=== PATIENT | female | born 1985 | race African-American/Black ===

== ENCOUNTER 2016-03-31 22:37 | Emergency (ER) | payer SELFPAY ==
[~2016-03-31] VITALS: Ht 167.6 cm; Wt 75.0 kg
[2016-03-31 22:40] VITALS: BP 122/64; PULSE 73; RESP 18; TEMP 98.2; O2SAT 98
[2016-03-31] MEDS ORDERED: ONDANSETRON HCL 4 MG/2 ML VIAL IV ONE (23:00)
[2016-03-31] MEDS ORDERED: SODIUM CHLOR 0.9% 1000 ML INJ 1,000 ML IV ONE (23:00)
[2016-03-31] MEDS ORDERED: ZOFR4TAB3 SL (23:08)
--- NOTE | 2016-03-31 23:08 | PD ---
HPI Chief Complaint: GI Complaint Time Seen by Provider: 22:52 Travel History International Travel<30 days: No Contact w/Intl Traveler<30days: No Traveled to known affect area: No History of Present Illness HPI The patient is 31 year old female who presents to the [facility] emergency department with a history of abrupt onset of nausea, vomiting, and diarrhea that began at approximate 4 PM today. She denies any unusual food intake. She denies any antibiotic use in the last 3 months. She denies any foreign travel in the last 6 months. The patient denies having any known sick contacts. The patient reports that she's had nausea and vomiting 3, diarrhea 4 since onset. She reports the stool is liquid and brown in color. She denies having any blood in the stool or mucus in the stool. The patient denies any recent fevers , cough, congestion, neck pain, chest pain, shortness of breath, abdominal pain , urinary symptoms, or neurologic symptoms. LMP: March 10, 2016 [facility] Past Medical History Narrative Medical The patient's past medical history is significant for hypothyroid disorder, hypertension, history of being prediabetic. The patient denies having a primary care physician currently. She reports that she last had her thyroid hormone checked 2 years ago. She reports that at that time it was within normal range. Diabetes: Yes (pre) Patient Takes Glucophage: No Hypertension: Yes Tetanus Vaccination: Unknown Influenza Vaccination: No ?: Not Past Surgical History Narrative Surgical The patient's past surgical history is significant for a cyst removal from her chest, history of . Section: Yes Other Surgery: Yes Social History Alcohol Use: No Tobacco Use: No Substance Use: No Allergies-Medications (Allergen,Severity, Reaction): Coded Allergies: No Known Allergies (Unverified , 03/31/16) Reported Meds & Prescriptions Reported Meds & Active Scripts Active Zofran Odt (Ondansetron Odt) 4 Mg Tab 4 Mg SL Q6HR PRN Review of Systems Except as stated in HPI: all other systems reviewed are Neg General / Constitutional: No: Fever Eyes: No: Visual changes HENT: No: Headaches Cardiovascular: No: Chest Pain or Discomfort Respiratory: No: Shortness of Breath Gastrointestinal: Positive: Nausea, Vomiting, Diarrhea, Changes in Bowel Habits , No: Abdominal Pain, Indigestion, Loss of Appetite Genitourinary: No: Dysuria Musculoskeletal: No: Pain Skin: No Rash Neurologic: No: Weakness Psychiatric: No: Depression Endocrine: No: Polydipsia Hematologic/Lymphatic: No: Easy Bruising Physical Exam Narrative General: The patient is a well-developed well-nourished female in no acute distress. Head and Neck exam: Head is normocephalic atraumatic. Eyes: Pupils are equal round and reactive to light. Nose: Midline septum with pink mucous membranes Mouth: Dentition unremarkable. Moist mucus membranes. Posterior oropharynx is not erythematous. No tonsillar hypertrophy. Uvula midline. Airway patent. Neck: No palpable lymphadenopathy. No nuchal rigidity. No thyromegaly. Cardiovascular: Regular rate and rhythm without murmurs, gallops, or rubs. Lungs: Clear to auscultation bilaterally. No wheezes, rhonchi, or rales. Abdomen: Soft, without tenderness to palpation in all 4 quadrants of the abdomen. No guarding, rebound, or rigidity. Normal bowel sounds are audible. No tenderness on palpation of McBurney's point. Negative Anderson's sign. Extremities: No clubbing, cyanosis, or edema. 2+ pulses in all 4 extremities. No calf tenderness on palpation. Back: No spinous process tenderness to palpation. No costovertebral angle tenderness to palpation. Neurologic Exam: Grossly nonfocal. Skin Exam: No rash noted. Intact skin that is warm and dry. Data Data Last Documented VS Vital Signs Date Time Temp Pulse Resp B/P Pulse Ox O2 Delivery O2 Flow Rate FiO2 03/31/16 23:13 18 03/31/16 22:40 98.2 73 122/64 98 Orders Complete Blood Count With Diff (03/31/16 22:58) Comprehensive Metabolic Panel (03/31/16 22:58) Thyroid Stimulating Hormone (03/31/16 22:58) Iv Access Insert/Monitor (03/31/16 22:58) Ecg Monitoring (03/31/16 22:58) Oximetry (03/31/16 22:58) Ed Urine Pregnancytest Poc (03/31/16 22:58) Sodium Chlor 0.9% 1000 Ml Inj (Ns 1000 M (03/31/16 23:00) Ondansetron Inj (Zofran Inj) (03/31/16 23:00) C-Reactive Protein (Crp) (03/31/16 22:58) Sodium Chlor 0.9% 1000 Ml Inj (Ns 1000 M (04/01/16 01:00) Oral Rehydration (04/01/16 00:52) Labs Laboratory Tests Test 03/31/16 23:12 Sodium Level 141 MEQ/L Potassium Level 3.2 MEQ/L Chloride Level 108 MEQ/L Carbon Dioxide Level 24.3 MEQ/L Anion Gap 9 MEQ/L Blood Urea Nitrogen 15 MG/DL Creatinine 1.07 MG/DL Estimat Glomerular Filtration 72 ML/MIN Rate Random Glucose 132 MG/DL Calcium Level 8.5 MG/DL Total Bilirubin 0.6 MG/DL Aspartate Amino Transf 22 U/L (AST/SGOT) Alanine Aminotransferase 22 U/L (ALT/SGPT) Alkaline Phosphatase 79 U/L C-Reactive Protein LESS THAN 0.29 MG/DL Total Protein 7.3 GM/DL Albumin 3.4 GM/DL Thyroid Stimulating Hormone 2.890 uIU/ML 3rd Gen White Blood Count 13.2 TH/MM3 Red Blood Count 4.73 MIL/MM3 Hemoglobin 11.4 GM/DL Hematocrit 34.9 % Mean Corpuscular Volume 73.8 FL Mean Corpuscular Hemoglobin 24.0 PG Mean Corpuscular Hemoglobin 32.5 % Concent Red Cell Distribution Width 18.2 % Platelet Count 171 TH/MM3 Mean Platelet Volume 9.6 FL Neutrophils (%) (Auto) 90.9 % Lymphocytes (%) (Auto) 3.8 % Monocytes (%) (Auto) 4.9 % Eosinophils (%) (Auto) 0.2 % Basophils (%) (Auto) 0.2 % Neutrophils # (Auto) 12.0 TH/MM3 Lymphocytes # (Auto) 0.5 TH/MM3 Monocytes # (Auto) 0.6 TH/MM3 Eosinophils # (Auto) 0.0 TH/MM3 Basophils # (Auto) 0.0 TH/MM3 CBC Comment AUTO DIFF Differential Total Cells 100 Counted Neutrophils % (Manual) 87 % Band Neutrophils % 6 % Lymphocytes % 2 % Monocytes % 3 % Eosinophils % 1 % Basophils % 1 % Neutrophils # (Manual) 12.3 TH/MM3 Differential Comment FINAL DIFF MANUAL Platelet Estimate NORMAL Platelet Morphology Comment NORMAL Acanthocytes OCC MDM Medical Decision Making Medical Screen Exam Complete: Yes Emergency Medical Condition: Yes Differential Diagnosis Viral versus bacterial Gastroenteritis, versus viral syndrome, versus electrolyte abnormality, versus Narrative Course During the course of the patients emergency department visit, the patients history, examination, and differential diagnosis were reviewed with the patient. The patient had IV access obtained and blood work sent for analysis. The patient was placed on a cardiac care nurse with oximetry and blood pressure monitoring. The patient was provided normal saline 1 L IV fluid bolus, Zofran 4 mg IV 1 for nausea. The patients laboratory studies were reviewed and remarkable for white count 13.2, hemoglobin 11.4, platelets 171 with 90.9 neutrophils, CMP is remarkable for potassium of 3.2 which was supplemented orally, chloride 108, creatinine 1.07, glucose 132, C-reactive protein less than 0.29, TSH within normal limits at 2.89. The patient was able to tolerate oral rehydration therapy. The patient was instructed regarding the importance of staying well-hydrated with oral rehydration solution such as Pedialyte. The patient will be discharged home with a prescription for Zofran. The patient's symptoms are likely related to a viral gastroenteritis. The patient is resting comfortably and feels better, is alert and in no distress. The patients results and examination findings were discussed with the patient. The repeat examination is unremarkable and benign. The history, exam, diagnostic testing, and current condition do not suggest any significant pathology to warrant further testing, continued ED treatment, admission, or surgical evaluation at this point. The vital signs have been stable. The patient does not have uncontrollable pain, intractable vomiting, or other significant symptoms. The patient's condition is stable and appropriate for discharge. The patient will pursue further outpatient evaluation with a primary care physician or other designated or consulting physician as indicated in the discharge instructions. The patient expressed understanding and was agreeable with this plan. Diagnosis Primary Impression: Nausea vomiting and diarrhea Patient Instructions: Acute Diarrhea (ED), Acute Nausea and Vomiting (ED), General Instructions Med/Other Pt SpecificInfo: Prescription(s) given Scripts Ondansetron Odt (Zofran Odt)4 Mg Tab4 Mg SL Q6HR PRN (Nausea/Vomiting) #7 TAB Ref 0 Prov:Jannet Díaz MD 03/31/16 Disposition: 01 DISCHARGE HOME Condition: Stable Jannet Díaz MD Mar 31, 2016 23:08
[2016-03-31 23:13] VITALS: RESP 18
[2016-03-31 23:18] LABS: BASOPHIL % 0.2 % (0.0-2.0); EOSINOPHIL % 0.2 % (0.0-4.0); HEMATOCRIT 34.9 % (35.0-46.0); LYMPH % 3.8 % (9.0-44.0); LYMPHOCYTE # 0.5 TH/MM3 (1.0-4.8); MEAN CELL VOLUME 73.8 FL (80.0-100.0); MEAN CORPUSCULAR HGB CONC 32.5 % (32.0-36.0); MONO % 4.9 % (0.0-8.0); NEUT % 90.9 % (16.0-70.0); PLATELET COUNT 171 TH/MM3 (150-450); RED BLOOD COUNT 4.73 MIL/MM3 (4.00-5.30); RED CELL DISTRIBUTION WIDTH 18.2 % (11.6-17.2); WHITE BLOOD COUNT 13.2 TH/MM3 (4.0-11.0)
[2016-03-31 23:19] LABS: HEMO FLAGS AUTO DIFF
[2016-03-31 23:35] LABS: ALT (GPT) 22 U/L (10-53); ANION GAP 9 MEQ/L (5-15); AST (GOT) 22 U/L (15-37); BICARBONATE 24.3 MEQ/L (21.0-32.0); BLOOD UREA NITROGEN 15 MG/DL (7-18); CHLORIDE 108 MEQ/L (98-107); GLOMERULAR FILTRATION RATE 72 ML/MIN (>89); POTASSIUM 3.2 MEQ/L (3.5-5.1); SODIUM (NA) 141 MEQ/L (136-145)
[2016-03-31 23:44] LABS: ALKALINE PHOSPHATASE 79 U/L (45-117); TOTAL BILIRUBIN ADULT 0.6 MG/DL (0.2-1.0)
[2016-03-31 23:46] LABS: BANDS 6 % (0-6); BASOPHILS 1 % (0-2); EOSINOPHILS 1 % (0-4); NEUTROPHIL # MANUAL DIFF 12.3 TH/MM3 (1.8-7.7); POLYS (SEG NEUTROPHILS) 87 % (16-70); WBC DIFF SAMPLE 100
[2016-03-31 23:47] LABS: PLATELET ESTIMATE SMEAR NORMAL (NORMAL); PLATELET MORPHOLOGY NORMAL (NORMAL); SCAN/DIFF FINAL DIFF MANUAL
[2016-03-31 23:48] LABS: ACANTHOCYTES OCC (NORMAL)
[2016-04-01] MEDS ORDERED: SODIUM CHLOR 0.9% 1000 ML INJ 1,000 ML IV ONE (01:00)
[2016-04-01] MEDS ORDERED: POTASSIUM CHLORIDE 20 MEQ CONTROLLED RELEASE TAB PO ONE (01:30)
== END 2016-04-01 02:21 | disposition home or self-care (01) ==
LOC: NEPE 22:37
DX: R11.2 Nausea with vomiting, unspecified (principal); R19.7 Diarrhea, unspecified; I10 Essential (primary) hypertension; E03.9 Hypothyroidism, unspecified; E11.9 Type 2 diabetes mellitus without complications
CPT/HCPCS: 80053; 84443; 84703; 85007; 85027; 86140; 96361; 96374; 99284; J2405; J7030

== ENCOUNTER 2016-09-02 08:10 | Emergency (ER) | payer OTHER ==
[~2016-09-02] VITALS: Ht 185.4 cm; Wt 82.0 kg
[~2016-09-02 08:10] MED LIST: ZOFR4TAB3 SL
[2016-09-02] MEDS ORDERED: AMLO5 PO (08:15)
[2016-09-02] MEDS ORDERED: LISI-515 PO (08:15)
[2016-09-02] MEDS ORDERED: SODIUM CHLORIDE 0.9% FLUSH 10 ML FLUSH IVF PRN (08:15)
--- NOTE | 2016-09-02 08:16 | PD ---
HPI Chief Complaint: Syncope/Near-Syncope Time Seen by Provider: 08:14 Travel History International Travel<30 days: No Contact w/Intl Traveler<30days: No History of Present Illness HPI 31-year-old female with history of HTN here with complaint of syncope. Patient was at work this morning. She began to feel lightheaded, nauseous, presyncopal and then had a brief syncopal episode. 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 Admits that she had not yet had anything to eat or drink at this morning. She feels back to baseline at this time. She denies having any chest pain, shortness of breath, palpitations. No personal or familial history of prolonged QT syndrome, WPW, Brugada. Patient does have a history of HTN, but is no longer on her antihypertensives. Noting lack of financial means and health insurance to follow up with PCP. PFSH Past Medical History Diabetes: Yes (prediabetic, no longer after losing weight) Hypertension: Yes Past Surgical History Section: Yes Other Surgery: Yes Social History Alcohol Use: No Tobacco Use: No Substance Use: No Allergies-Medications (Allergen,Severity, Reaction): Coded Allergies: No Known Allergies (Unverified , 09/02/16) Reported Meds & Prescriptions Reported Meds & Active Scripts Active Lisinopril 20 Mg Tab 20 Mg PO DAILY Norvasc (Amlodipine Besylate) 5 Mg Tab 5 Mg PO DAILY Zofran Odt (Ondansetron Odt) 4 Mg Tab 4 Mg SL Q6HR PRN Review of Systems Except as stated in HPI: all other systems reviewed are Neg Physical Exam Narrative GENERAL: Well-appearing female in no acute distress SKIN: Focused skin assessment warm/dry. HEAD: Normocephalic. EYES: No scleral icterus. No injection or drainage. ENT: Mucous membranes pink and moist. NECK: Supple CARDIOVASCULAR: Regular rate and rhythm. No murmur appreciated. RESPIRATORY: No accessory muscle use. Clear to auscultation. Breath sounds equal bilaterally. GASTROINTESTINAL: Abdomen soft, non-tender, nondistended. MUSCULOSKELETAL: No obvious deformities. No edema. NEUROLOGICAL: Awake and alert. Normal speech. PSYCHIATRIC: Appropriate mood and affect; insight and judgment normal. Data Data Last Documented VS Vital Signs Date Time Temp Pulse Resp B/P Pulse Ox O2 Delivery O2 Flow Rate FiO2 09/02/16 08:34 100 Room Air 09/02/16 08:29 97.5 72 15 150/99 Orders Electrocardiogram (09/02/16 08:14) Basic Metabolic Panel (Bmp) (09/02/16 08:14) Complete Blood Count With Diff (09/02/16 08:14) Magnesium (Mg) (09/02/16 08:14) Ecg Monitoring (09/02/16 08:14) Iv Access Insert/Monitor (09/02/16 08:14) Oximetry (09/02/16 08:14) Sodium Chloride 0.9% Flush (Ns Flush) (09/02/16 08:15) Potassium Chloride (Kcl) (09/02/16 09:00) Labs Laboratory Tests Test 09/02/16 08:28 White Blood Count 5.2 TH/MM3 Red Blood Count 4.62 MIL/MM3 Hemoglobin 10.5 GM/DL Hematocrit 33.6 % Mean Corpuscular Volume 72.7 FL Mean Corpuscular Hemoglobin 22.8 PG Mean Corpuscular Hemoglobin 31.4 % Concent Red Cell Distribution Width 18.1 % Platelet Count 250 TH/MM3 Mean Platelet Volume 9.3 FL Neutrophils (%) (Auto) 44.4 % Lymphocytes (%) (Auto) 46.4 % Monocytes (%) (Auto) 8.0 % Eosinophils (%) (Auto) 0.7 % Basophils (%) (Auto) 0.5 % Neutrophils # (Auto) 2.3 TH/MM3 Lymphocytes # (Auto) 2.5 TH/MM3 Monocytes # (Auto) 0.4 TH/MM3 Eosinophils # (Auto) 0.0 TH/MM3 Basophils # (Auto) 0.0 TH/MM3 CBC Comment AUTO DIFF Differential Comment AUTO DIFF CONFIRMED Platelet Estimate NORMAL Platelet Morphology Comment NORMAL Sodium Level 142 MEQ/L Potassium Level 3.2 MEQ/L Chloride Level 105 MEQ/L Carbon Dioxide Level 29.2 MEQ/L Anion Gap 8 MEQ/L Blood Urea Nitrogen 14 MG/DL Creatinine 1.00 MG/DL Estimat Glomerular Filtration 78 ML/MIN Rate Random Glucose 90 MG/DL Calcium Level 8.8 MG/DL Magnesium Level 2.2 MG/DL [facility] Medical Decision Making Medical Screen Exam Complete: Yes Emergency Medical Condition: Yes Medical Record Reviewed: Yes Differential Diagnosis 31-year-old female with history of HTN here to break syncopal episode. Differential includes vasovagal, dehydration, arrhythmia, symptomatic anemia, electrolyte abnormality. Narrative Course Patient placed on monitor, IV established and blood obtained. Twelve-lead EKG shows sinus rhythm without notable ST or T-wave abnormalities and normal intervals. Patient feels improved and is back to baseline. Able to ambulate without any symptoms. CBC, BMP, magnesium notable for potassium 3.2, replaced with 40mEq orally. Patient reassured and discharged home with prescriptions for antihypertensives. Diagnosis Primary Impression: Vasovagal syncope Additional Impressions: Hypertension Qualified Code: I10 - Essential hypertension Hypokalemia Referrals: [facility] call for appointment Additional Instructions: Antihypertensives as prescribed. Call to establish primary care provider for ongoing management of hypertension. Med/Other Pt SpecificInfo: Prescription(s) given Scripts Lisinopril 20 Mg Tab20 Mg PO DAILY #30 TAB Ref 0 Prov:Zully Mayorga MD 09/02/16 Amlodipine (Norvasc)5 Mg Tab5 Mg PO DAILY #30 TAB Ref 0 Prov:Zully Mayorga MD 09/02/16 Disposition: 01 DISCHARGE HOME Condition: Stable Zully Mayorga MD Sep 02, 2016 08:16
[2016-09-02 08:29] VITALS: BP 150/99; PULSE 72; RESP 15; TEMP 97.5; O2SAT 100
[2016-09-02 08:34] VITALS: O2SAT 100
[2016-09-02 08:36] LABS: AUTOMATED NEUTROPHIL # 2.3 TH/MM3 (1.8-7.7); BASOPHIL % 0.5 % (0.0-2.0); EOSINOPHIL % 0.7 % (0.0-4.0); HEMATOCRIT 33.6 % (35.0-46.0); LYMPH % 46.4 % (9.0-44.0); LYMPHOCYTE # 2.5 TH/MM3 (1.0-4.8); MEAN CELL VOLUME 72.7 FL (80.0-100.0); MEAN CORPUSCULAR HEMOGLOBIN 22.8 PG (27.0-34.0); MEAN CORPUSCULAR HGB CONC 31.4 % (32.0-36.0); NEUT % 44.4 % (16.0-70.0); PLATELET COUNT 250 TH/MM3 (150-450); RED BLOOD COUNT 4.62 MIL/MM3 (4.00-5.30); RED CELL DISTRIBUTION WIDTH 18.1 % (11.6-17.2); WHITE BLOOD COUNT 5.2 TH/MM3 (4.0-11.0)
[2016-09-02 08:37] LABS: HEMO FLAGS AUTO DIFF
[2016-09-02 08:42] LABS: POTASSIUM 3.2 MEQ/L (3.5-5.1)
[2016-09-02 08:44] LABS: BICARBONATE 29.2 MEQ/L (21.0-32.0); MAGNESIUM 2.2 MG/DL (1.5-2.5)
[2016-09-02 08:57] LABS: PLATELET ESTIMATE SMEAR NORMAL (NORMAL); PLATELET MORPHOLOGY NORMAL (NORMAL); SCAN/DIFF AUTO DIFF CONFIRMED
[2016-09-02] MEDS ORDERED: POTASSIUM CHLORIDE 20 MEQ CONTROLLED RELEASE TAB PO ONE (09:00)
--- NOTE | 2016-09-02 13:44 | EKG ---
Date Performed: 09/02/2016 Time Performed: 08:18:38 PTAGE: 31 years EKG: Sinus rhythm Normal ECG based on available leads NO PREVIOUS TRACING DOCTOR: Isaias Rousseau Interpretating Date/Time 09/02/2016 13:41:46
== END 2016-09-02 09:20 | disposition home or self-care (01) ==
LOC: PHED 08:10
DX: R55 Syncope and collapse (principal); I10 Essential (primary) hypertension; E87.6 Hypokalemia
CPT/HCPCS: 80048; 83735; 85025; 93005; 99285

== ENCOUNTER 2016-09-18 23:31 | Emergency (ER) | payer SELFPAY ==
[~2016-09-18] VITALS: Ht 185.4 cm; Wt 87.3 kg
[~2016-09-18 23:31] MED LIST changes: +AMLO5 PO; +LISI-515 PO
[2016-09-18 23:36] VITALS: BP 111/70; PULSE 85; RESP 12; TEMP 98.6; O2SAT 100
[2016-09-19] MEDS ORDERED: SODIUM CHLOR 0.9% 1000 ML INJ 1,000 ML IV SCH (00:23)
[2016-09-19] MEDS ORDERED: SODIUM CHLORIDE 0.9% FLUSH 10 ML FLUSH IV FLUSH PRN (00:30)
[2016-09-19] MEDS ORDERED: EPINEPHrine HCL (1:1000) 1 MG/ML VIAL IM ONE (00:30)
[2016-09-19] MEDS ORDERED: FAMOTIDINE 20 MG/2 ML VIAL IV PUSH ONE (00:30)
[2016-09-19] MEDS ORDERED: predniSONE 20 MG TAB PO ONE (00:30)
[2016-09-19] MEDS ORDERED: methylPREDNISolone SOD SUCC 125 MG/2 ML VIAL IM ONE (00:30)
[2016-09-19] MEDS ORDERED: diphenhydrAMINE HCL 50 MG/ML VIAL IVP ONE (00:30)
[2016-09-19] MEDS ORDERED: ZANT150T2 PO (00:34)
[2016-09-19] MEDS ORDERED: PRED50 PO (00:34)
--- NOTE | 2016-09-19 00:34 | PD ---
HPI Chief Complaint: Allergic/Adverse Reaction Time Seen by Provider: 00:23 Travel History International Travel<30 days: No Contact w/Intl Traveler<30days: No Traveled to known affect area: No History of Present Illness HPI The patient is a 31-year-old female that was just started on lisinopril recently and complains of upper lip swelling since 1 PM today. The patient denies any wheezing, shortness of breath or any other symptoms. She hasn't no other known allergies. She denies any tongue swelling or airway obstruction. She took a 25 mg tablet and 10 cc of Benadryl elixir at around 6 PM today. She states there is no possibility of . She has not taken the lisinopril in over 24 hours. [facility] Past Medical History Diabetes: Yes (prediabetic, no longer after losing weight) Patient Takes Glucophage: No Hypertension: Yes Thyroid Disease: Yes (HYPOTHYROIDISM) Tetanus Vaccination: > 5 Years Influenza Vaccination: No ?: Not LMP: 08/27/16 : 1 Para: 1 Past Surgical History Section: Yes (2007) Other Surgery: Yes (CYST REMOVAL-LOWER STERNUM ) Social History Alcohol Use: No Tobacco Use: No Substance Use: No Allergies-Medications (Allergen,Severity, Reaction): Coded Allergies: No Known Allergies (Unverified , 09/18/16) Reported Meds & Prescriptions Reported Meds & Active Scripts Active Lisinopril 20 Mg Tab 20 Mg PO DAILY Norvasc (Amlodipine Besylate) 5 Mg Tab 5 Mg PO DAILY Review of Systems Except as stated in HPI: all other systems reviewed are Neg Physical Exam Narrative GENERAL: The patient is alert, oriented 3 in minimal apparent distress with her upper lip swelling. She is not in any respiratory distress. Her vital signs are normal. SKIN: Focused skin assessment warm/dry. No skin rash is noted. HEAD: Atraumatic. Normocephalic. EYES: Pupils equal and round. No scleral icterus. No injection or drainage. ENT: No nasal bleeding or discharge. Mucous membranes pink and moist. There is swelling over the left lip but no tongue swelling. There is no airway stridor. NECK: Trachea midline. No JVD. CARDIOVASCULAR: Regular rate and rhythm. No murmur appreciated. RESPIRATORY: No accessory muscle use. Clear to auscultation. Breath sounds equal bilaterally. GASTROINTESTINAL: Abdomen soft, non-tender, nondistended. Hepatic and splenic margins not palpable. MUSCULOSKELETAL: No obvious deformities. No clubbing. No cyanosis. No edema. NEUROLOGICAL: Awake and alert. No obvious cranial nerve deficits. Motor grossly within normal limits. Normal speech. PSYCHIATRIC: Appropriate mood and affect; insight and judgment normal. Data Data Last Documented VS Vital Signs Date Time Temp Pulse Resp B/P Pulse Ox O2 Delivery O2 Flow Rate FiO2 09/18/16 23:50 76 97 Room Air 09/18/16 23:36 98.6 12 111/70 [facility] Medical Decision Making Medical Screen Exam Complete: Yes Emergency Medical Condition: Yes Medical Record Reviewed: Yes Differential Diagnosis Angioedema, allergic reaction, dental abscess, cellulitis Narrative Course The patient appears to have angioedema from lisinopril. She will need to discontinue the lisinopril and follow-up with her primary care physician this week. Her pressure is good despite not taking the lisinopril and 24 hours. Diagnosis Primary Impression: VIVIAN inhibitor-aggravated angioedema Additional Instructions: As we discussed, discontinue the lisinopril and take the Benadryl 25 mg 3 times daily, the Zantac 150 mg twice daily and the prednisone 50 mg daily for 5 days. Med/Other Pt SpecificInfo: Prescription(s) given Scripts Prednisone 50 Mg Tab50 Mg PO DAILY 4 Days Ref 0 Prov:Arash Torres MD 09/19/16 Ranitidine (Zantac)150 Mg Pte593 Mg PO BID #60 TAB Ref 0 Prov:Arash Torres MD 09/19/16 Disposition: 01 DISCHARGE HOME Condition: Stable Arash Torres MD Sep 19, 2016 00:34
[2016-09-19 00:49] VITALS: PULSE 77; O2SAT 100
[2016-09-19 00:54] LABS: AUTOMATED NEUTROPHIL # 3.5 TH/MM3 (1.8-7.7); BASOPHIL % 0.3 % (0.0-2.0); EOSINOPHIL # 0.1 TH/MM3 (0-0.4); EOSINOPHIL % 0.8 % (0.0-4.0); HEMATOCRIT 31.4 % (35.0-46.0); LYMPH % 40.2 % (9.0-44.0); MEAN CELL VOLUME 73.2 FL (80.0-100.0); MEAN CORPUSCULAR HEMOGLOBIN 23.4 PG (27.0-34.0); MEAN CORPUSCULAR HGB CONC 31.9 % (32.0-36.0); MONO % 11.2 % (0.0-8.0); NEUT % 47.5 % (16.0-70.0); PLATELET COUNT 184 TH/MM3 (150-450); RED CELL DISTRIBUTION WIDTH 18.1 % (11.6-17.2); WHITE BLOOD COUNT 7.4 TH/MM3 (4.0-11.0)
[2016-09-19 00:58] LABS: HEMO FLAGS DIFF FINAL
[2016-09-19 01:06] LABS: POTASSIUM 3.3 MEQ/L (3.5-5.1)
[2016-09-19 01:10] LABS: BICARBONATE 27.9 MEQ/L (21.0-32.0)
[2016-09-19 01:52] VITALS: BP 119/58
== END 2016-09-19 01:53 | disposition home or self-care (01) ==
LOC: PHED 23:31
DX: T78.3XXA Angioneurotic edema, initial encounter (principal); X58.XXXA Exposure to other specified factors, initial encounter; I10 Essential (primary) hypertension; E03.9 Hypothyroidism, unspecified; R73.03 Prediabetes
CPT/HCPCS: 80048; 85025; 96372; 96374; 96375; 99284; J0171; J1200; J2930; J7030; J7512